=== PATIENT | male | born 1980 | race Hispanic/Latino ===

== ENCOUNTER 2016-12-10 03:00 | Emergency (ER) ==
[~2016-12-10] VITALS: Ht 172.7 cm; Wt 73.0 kg
[2016-12-10 03:08] VITALS: BP 137/92
[2016-12-10] MEDS ORDERED: GABA-283 PO (12:06)
[2016-12-10] MEDS ORDERED: NEUR300C PO (12:06)
[2016-12-10] MEDS ORDERED: PROZ10CA7 PO (12:06)
[2016-12-10] MEDS ORDERED: PAXI40TA10 PO (12:06)
== END 2016-12-10 04:45 | disposition left against medical advice (07) ==
LOC: M ED 03:00
DX: S01.91XA Laceration without foreign body of unspecified part of head, initial encounter (principal); Y92.9 Unspecified place or not applicable; Y93.9 Activity, unspecified; Y99.9 Unspecified external cause status; X58.XXXA Exposure to other specified factors, initial encounter; Z53.21 Procedure and treatment not carried out due to patient leaving prior to being seen by health care provider

== ENCOUNTER 2016-12-10 11:59 | Emergency (ER) | payer OTHER ==
[~2016-12-10] VITALS: Ht 172.7 cm; Wt 59.1 kg
[2016-12-10 11:59] VITALS: BP 131/85
[2016-12-10] MEDS ORDERED: GABA-283 PO (12:06)
[2016-12-10] MEDS ORDERED: PROZ10CA7 PO (12:06)
[2016-12-10] MEDS ORDERED: NEUR300C PO (12:06)
[2016-12-10] MEDS ORDERED: PAXI40TA10 PO (12:06)
[2016-12-10] MEDS ORDERED: DERMABOND TOPICAL SKIN ADHESIVE TOP ONE (12:45)
== END 2016-12-10 13:05 | disposition home or self-care (01) ==
LOC: M ED 11:59
DX: S01.01XA Laceration without foreign body of scalp, initial encounter (principal); W20.8XXA Other cause of strike by thrown, projected or falling object, initial encounter; Y92.410 Unspecified street and highway as the place of occurrence of the external cause; Y93.9 Activity, unspecified; Y99.9 Unspecified external cause status; G89.29 Other chronic pain; F99 Mental disorder, not otherwise specified; Z79.899 Other long term (current) drug therapy